=== PATIENT | female | born 1980 | race Caucasian/White ===

== ENCOUNTER 2016-10-23 20:53 | Emergency (ER) | payer OTHER ==
[2016-10-24 00:55] VITALS: BP 113/78
== END 2016-10-24 00:56 | disposition home or self-care (01) ==
LOC: ED 20:53
DX: G43.909 Migraine, unspecified, not intractable, without status migrainosus (principal); R11.2 Nausea with vomiting, unspecified; Z88.1 Allergy status to other antibiotic agents
CPT/HCPCS: J1200; J2765; J3490; J7030

== ENCOUNTER 2018-01-03 20:53 | Emergency (ER) | payer OTHER ==
[~2018-01-03] VITALS: Ht 160 cm; Wt 80.3 kg
[2018-01-03 20:57] VITALS: Ht 160 cm; Wt 80.3 kg
[2018-01-03 21:31] VITALS: BP 120/84
== END 2018-01-03 21:31 | disposition home or self-care (01) ==
LOC: ED 20:53
DX: S90.862A Insect bite (nonvenomous), left foot, initial encounter (principal); Z88.1 Allergy status to other antibiotic agents; W57.XXXA Bitten or stung by nonvenomous insect and other nonvenomous arthropods, initial encounter; Y93.89 Activity, other specified; Y92.89 Other specified places as the place of occurrence of the external cause; Y99.8 Other external cause status

== ENCOUNTER 2018-10-16 18:41 | Emergency (ER) | payer OTHER ==
[~2018-10-16] VITALS: Ht 162.6 cm; Wt 82.7 kg
[2018-10-16 18:59] VITALS: Ht 162.6 cm; Wt 82.7 kg
[2018-10-16 20:15] LABS: BASOPHIL % 0.4 % (0-2); PLATELET COUNT 417 x10^3mcL (130-400); RED CELL DISTRIBUTION WIDTH 15.3 % (11.5-14.5)
[2018-10-16 20:24] LABS: CALCIUM 8.7 mg/dL (8.5-10.1); CARBON DIOXIDE 28.5 mmol/L (21-32); CHLORIDE SERUM 102 mmol/L (98-107); CREATININE SERUM 0.9 mg/dL (0.6-1.0); GFR1 > 60 mL/min; GLUCOSE SERUM 118 mg/dL (74-106); POTASSIUM SERUM 3.8 mmol/L (3.5-5.1); SODIUM SERUM 139 mmol/L (136-145)
[2018-10-16 20:28] LABS: ALBUMIN 3.9 g/dL (3.4-5.0); ALKALINE PHOSPHATASE 108 U/L (46-116); ALT/SGPT 29 U/L (14-59); AST/SGOT 16 U/L (15-37); BILIRUBIN TOTAL 0.88 mg/dL (0.20-1.00); LIPASE 62 IU/L (73-393); TOTAL PROTEIN, SERUM 7.8 g/dL (6.4-8.2)
[2018-10-16 22:34] VITALS: BP 119/67
== END 2018-10-16 22:34 | disposition home or self-care (01) ==
LOC: ED 18:41
DX: K52.9 Noninfective gastroenteritis and colitis, unspecified (principal); Z90.49 Acquired absence of other specified parts of digestive tract; Z98.890 Other specified postprocedural states; Z88.0 Allergy status to penicillin
CPT/HCPCS: J1885; J2405; J7030

== ENCOUNTER 2019-03-26 20:18 | Emergency (ER) | payer OTHER ==
[~2019-03-26] VITALS: Ht 162.6 cm; Wt 85.3 kg
[2019-03-26 20:23] VITALS: Ht 162.6 cm; Wt 85.3 kg
[2019-03-26 22:30] VITALS: BP 138/74
[2019-03-26 22:31] LABS: CALCIUM 8.8 mg/dL (8.5-10.1); CARBON DIOXIDE 33.5 mmol/L (21-32); CHLORIDE SERUM 106 mmol/L (98-107); CREATININE SERUM 0.7 mg/dL (0.6-1.0); GFR1 > 60 mL/min; GLUCOSE SERUM 107 mg/dL (74-106); POTASSIUM SERUM 3.8 mmol/L (3.5-5.1); SODIUM SERUM 142 mmol/L (136-145)
[2019-03-26 22:45] LABS: FREE T4 0.92 ng/dL (0.76-1.46)
== END 2019-03-26 23:35 | disposition home or self-care (01) ==
LOC: ED 20:18
PROVIDERS: Emergency Medicine
DX: R42 Dizziness and giddiness (principal); Z90.49 Acquired absence of other specified parts of digestive tract; Z98.890 Other specified postprocedural states
CPT/HCPCS: 36415; 84439; J8597

== ENCOUNTER 2019-10-12 00:42 | Emergency (ER) | payer OTHER ==
[~2019-10-12] VITALS: Ht 160 cm; Wt 86.2 kg
[2019-10-12 00:48] VITALS: Ht 160 cm; Wt 86.2 kg
[2019-10-12 05:00] VITALS: BP 142/78
== END 2019-10-12 02:41 | disposition home or self-care (01) ==
LOC: ED 00:42
DX: S93.491A Sprain of other ligament of right ankle, initial encounter (principal); Z90.49 Acquired absence of other specified parts of digestive tract; Z88.1 Allergy status to other antibiotic agents; X58.XXXA Exposure to other specified factors, initial encounter; Y93.89 Activity, other specified; Y92.810 Car as the place of occurrence of the external cause; Y99.8 Other external cause status
CPT/HCPCS: Q0092